=== PATIENT | male | born 1935 | race Caucasian/White ===

== ENCOUNTER 2018-06-09 09:33 | Emergency (ER) | payer MEDICARE, OTHER ==
[~2018-06-09] VITALS: Ht 175.3 cm; Wt 104.5 kg
[2018-06-09 09:48] VITALS: Ht 175.3 cm; Wt 104.5 kg
[2018-06-09] MEDS ORDERED: TENORMIN25 MG PO (09:51)
[2018-06-09] MEDS ORDERED: FOLIC ACID1 MG PO (09:52)
[2018-06-09] MEDS ORDERED: ASPIRIN81 MG PO (09:52)
[2018-06-09] MEDS ORDERED: GLUCOPHAGE500 MG PO (09:52)
[2018-06-09] MEDS ORDERED: GLIMEPIRIDE2 MG PO (09:52)
[2018-06-09] MEDS ORDERED: GLUCOSAMINE HC500 MG PO (09:53)
[2018-06-09] MEDS ORDERED: ALTACE10 MG PO (09:53)
[2018-06-09] MEDS ORDERED: CENTRUM MEN'S1 EACH PO (09:53)
[2018-06-09] MEDS ORDERED: ACEROLA C500 MG PO (09:54)
[2018-06-09] MEDS ORDERED: B-12 DOTS500 MCG PO (09:54)
[2018-06-09] MEDS ORDERED: SULAR8.5 MG PO (09:54)
[2018-06-09] MEDS ORDERED: KENALOG 0.1 % O15 GM TOPICAL (09:54)
[2018-06-09] MEDS ORDERED: VOLTAREN100 GM TOPICAL (09:55)
[2018-06-09] MEDS ORDERED: VITAMIN D2000 UNIT PO (09:55)
[2018-06-09 10:14] LABS: BASOPHILS 0.8 % (0-2); EOSINOPHILS 2.1 % (0-7); HEMATOCRIT 41.9 % (42.0-54.0); HEMOGLOBIN 13.4 g/dL (13.5-17.5); IMMATURE GRANULOCYTES 0.4 % (0-5); LYMPHOCYTES 9.5 % (15-50); MCH 28.3 pg (26.0-34.0); MCV 88.4 fL (80.0-100.0); MEAN PLATELET VOLUME 9.3 fL (7.4-10.4); MONOCYTES 6.3 % (2-11); NEUTROPHILS 80.9 % (40-80); PLATELET COUNT 211 10x3/uL (130-400); RBC 4.74 10x6/uL (4.20-6.10); WBC 8.4 10x3/uL (4.8-10.8)
[2018-06-09 10:23] LABS: INR 1.27 (0.85-1.17); PROTIME 15.4 SECONDS (11.6-15.0)
[2018-06-09 10:30] LABS: ALBUMIN 3.5 g/dL (3.4-5.0); ALKALINE PHOSPHATASE 60 U/L (46-116); ALT (SGPT) 32 U/L (10-68); BILIRUBIN - TOTAL 0.72 mg/dL (0.2-1.3); CALC OSMOLALITY 290 mosm/kg (275-300); CALCIUM 8.8 mg/dL (8.5-10.1); CARBON DIOXIDE 27.8 mmol/L (21.0-32.0); CHLORIDE - SERUM 106 mmol/L (98-107); GLUCOSE 205 mg/dL (74-106); POTASSIUM - SERUM 4.2 mmol/L (3.5-5.1); PROTEIN - SERUM 6.9 g/dL (6.4-8.2); SODIUM 141 mmol/L (136-145); UREA NITROGEN 24 mg/dL (7-18); eGFR NON AFRICAN AMERICAN 75 mL/min (90-120)
[2018-06-09 11:57] VITALS: BP 189/88
== END 2018-06-09 11:57 | disposition home or self-care (01) ==
LOC: D.ER 09:33
PROVIDERS: Emergency Medicine
DX: R04.0 Epistaxis (principal)